=== PATIENT | male | born 1975 | race Caucasian/White ===

== ENCOUNTER → 2019-02-07 18:34 | Outpatient (CLI) | payer BC, SELFPAY ==
[2019-01-05 16:28] VITALS: BMI 29.8
[2019-02-07 18:47] LABS: Absolute Lymphocyte Count 2.44 X10^3/ul (0.83-4.51); Absolute Neutrophil Count 4.1 X10^3/uL (2.0-7.7); Basophil# 0.02 X10^3/uL; Basophil% 0.3 % (0-1); Eosinophil# 0.17 X10^3/uL; Eosinophils% 2.4 % (0-5); Hematocrit 46.7 % (40-54); Hemoglobin 14.5 g/dl (13.0-16.5); Lymphocyte # 2.44 X10^3/ul (4.0); Lymphocyte % 33.7 % (19-41); Mean Corpuscular Hgb 30.9 pg (27.0-32.0); Mean Corpuscular Volume 99.4 fL (80-94); Mean Platelet Vol. 10.8 fl (6.2-12.0); Monocyte% 6.9 % (0-10); Neutrophil # 4.09 X10^3/uL (2.7-7.7); Neutrophil % 56.6 % (47-70); Platelet Count 172 K/mm3 (150-450); RBC Distribution Width CV 13.8 % (11.6-14.6); RBC Distribution Width SD 49.9 fl (35.1-43.9); White Blood Count 7.2 K/mm3 (4.4-11.0)
[2019-02-07 18:49] LABS: POSITIVE COUNT NO; POSITIVE DIFFERENTIAL NO; POSITIVE MORPHOLOGY NO
[2019-02-07 18:58] LABS: PSA,Total- Diagnostic 0.66 ng/mL (0.0-4.0)
[2019-02-12 09:38] LABS: Testosterone, Free 37.76 ng/dL (5.00-21.00)
[2019-02-13 09:08] LABS: Testosterone, % Free 2.99 % (1.50-4.20); Testosterone, Total 1263 ng/dL (264-916)
== END ==
PROVIDERS: Referring Provider Nurse Practitioner; Visit Provider Nurse Practitioner
DX: R79.89 Other specified abnormal findings of blood chemistry (principal)
CPT/HCPCS: 84153; 84402; 84403; 85025